=== PATIENT | female | born 1990 | race Caucasian/White ===

== ENCOUNTER 2021-10-31 17:37 | Observation (INO) | payer OTHER ==
[2021-10-31 18:51] LABS: ANION GAP 14.7 mmol/L (5-15); CHLORIDE,CL 107 mmol/L (98-107); SODIUM,NA 144 mmol/L (136-145)
--- NOTE | 2021-10-31 18:57 | CR ---
[id number] RAD/RAD Chest PA And Lateral EXAM: RAD Chest PA And Lateral INDICATION: SHORTNESS OF BREATH. COMPARISON: None. DISCUSSION/IMPRESSION: Cardiomediastinal silhouette is normal in size and contour. Lungs are clear. No pleural effusion or pneumothorax. Nicolas Solis MD 10/31/21 [id number] Thank you for allowing us to participate in the care of your patient.
[2021-10-31] MEDS ORDERED: Metoprolol Tartrate 25 MG Tab PO ONE (20:10)
--- NOTE | 2021-10-31 20:11 | EDM.PDOC ---
ED HPI GENERAL MEDICAL PROBLEM - General Chief Complaint: General Stated Complaint: CHEST PAIN WITH TACHYCARDIA Time Seen by Provider: 10/31/21 18:22 Source of Information: Reports: Patient History Limitations: Reports: No Limitations - History of Present Illness INITIAL COMMENTS - FREE TEXT/NARRATIVE: Patient presents with tachycardia and dyspnea with exertion. She also usually, but not always, has chest pressure with it. This happens very quickly with any exertion, even slight exertion such as walking across the room, sitting up in bed, or even talking. This happens every time she exerts and resolves quickly at rest. It started 5 days ago and has worsened somewhat each day. She wondered if it could be dehydration, although she drinks around 12 cups of water daily, so she increased to at least a gallon/day the last couple days; no improvement. 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 She has had 3 negative covid tests in the last 7-10 days. Her 3-year-old son tested positive for covid 1-2 weeks ago. 7 days ago she noticed some sharp, pleuritic-like chest pains for up to 5 minutes that happened a few times; deep breathing and positional changes didn't affect it though. 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 Denies: Cough Cardiovascular: Reports: Chest Pain. Denies: Lightheadedness, Syncope Endocrine: Denies: Fatigue GI/Abdominal: Denies: Abdominal Pain, Constipation, Diarrhea, Vomiting : Denies: Dysuria, Flank Pain Musculoskeletal: Denies: Neck Pain, Shoulder Pain, Arm Pain, Back Pain, Hand Pain Skin: Denies: Cyanosis, Jaundice, Mottled, Pallor, Diaphoresis Neurological: Denies: Confusion, Dizziness, Headache, Seizure, Syncope, Trouble Speaking, Difficulty Walking Psychiatric: Denies: Agitation, Anxiety ED EXAM, GENERAL - Physical Exam Exam: See Below Exam Limited By: No Limitations General Appearance: Alert, WD/WN, No Apparent Distress Eye Exam: Bilateral Eye: EOMI, Normal Inspection, PERRL Ears: Normal External Exam, Hearing Grossly Normal Nose: Normal Inspection, No Blood Throat/Mouth: Normal Inspection, Normal Lips, Normal Voice, No Airway Compromise Head: Atraumatic, Normocephalic Neck: Normal Inspection, Full Range of Motion Respiratory/Chest: No Respiratory Distress, Lungs Clear, Normal Breath Sounds, No Accessory Muscle Use, Chest Non-Tender Cardiovascular: Normal Peripheral Pulses, Regular Rate, Rhythm (at rest, but rate quickly rises with any activity), No Edema, No Gallop, No JVD, No Murmur Peripheral Pulses: 2+: Carotid (L), Carotid (R), Radial (L), Radial (R), Posterior Tibial (L), Posterior Tibial (R) GI/Abdominal: Normal Bowel Sounds, Soft, Non-Tender, No Organomegaly, No Distention Back Exam: Normal Inspection, Full Range of Motion. No: CVA Tenderness (L), CVA Tenderness (R) Extremities: Normal Inspection, Normal Range of Motion Neurological: Alert, Oriented, Normal Cognition, No Motor/Sensory Deficits Psychiatric: Normal Affect, Normal Mood, Anxious (somewhat) Skin Exam: Warm, Dry, Intact, Normal Color, No Rash Course - Vital Signs Last Recorded V/S: Last Vital Signs Temp 97.7 F 10/31/21 17:45 Pulse 106 H 10/31/21 19:00 Resp 18 10/31/21 19:00 BP 129/97 H 10/31/21 19:00 Pulse Ox 94 L 10/31/21 19:00 Orthostatic Blood Pressure [ 113/85 Standing] Orthostatic Blood Pressure [ 103/69 Supine] Orthostatic Blood Pressure [ 105/77 Sitting] - Orders/Labs/Meds Orders: Active Orders 24 hr Category Date Time Status Patient Status [ADT] Routine ADT 10/31/21 20:09 Ordered Orthostatic Vital Signs [RC] ASDIRECTED Care 10/31/21 20:09 Ordered EKG 12 Lead [EK] Stat Ther 10/31/21 17:56 Ordered Labs: Laboratory Tests 10/31/21 10/31/21 10/31/21 Range/Units 18:15 18:15 18:15 WBC (5.00-10.00) 10^3/uL RBC (3.80-5.50) 10^6/uL Hgb (12.0-16.0) g/dL Hct (37.0-47.0) % MCV (82.0-92.0) fL MCH (27.0-31.0) pg MCHC (32.0-36.0) g/dL RDW (11.5-14.5) % Plt Count (150-400) 10^3/uL MPV (7.4-10.4) fL Immature Gran % (Auto) (0.0-5.0) % Neut % (Auto) (50.0-70.0) % Lymph % (Auto) (20.0-40.0) % [place] % (Auto) (2.0-8.0) % Eos % (Auto) (1.0-3.0) % Baso % (Auto) (0.0-1.0) % Neut # (Auto) (2.50-7.00) 10^3/uL Lymph # (Auto) (1.00-4.00) 10^3/uL [place] # (Auto) (0.10-0.80) 10^3/uL Eos # (Auto) (0.10-0.30) 10^3/uL Baso # (Auto) (0.00-0.10) 10^3/uL Immature Gran # (Auto) (0.00-0.50) 10^3/uL D-Dimer, Quantitative < 100 (<400) ng/mL Sodium 144 (136-145) mmol/L Potassium 4.3 (3.5-5.1) mmol/L Chloride 107 (98-107) mmol/L Carbon Dioxide 26.6 (21.0-32.0) mmol/L Anion Gap 14.7 (5-15) mmol/L BUN 10 (7-18) mg/dL Creatinine 0.69 (0.51-1.17) mg/dL Est Cr Clr Drug Dosing 106.71 mL/min Estimated GFR (MDRD) > 60 mL/min Glucose 129 (70-140) mg/dL Calcium 8.7 (8.7-10.3) mg/dL Total Bilirubin 0.3 (0.2-1.0) mg/dL AST 15 (15-37) U/L ALT 19 (14-63) U/L Alkaline Phosphatase 101 (46-116) U/L Troponin I High Sens < 4.000 (0-51.000) pg/mL Total Protein 7.0 (6.4-8.2) g/dL Albumin 3.96 (3.40-5.00) g/dL TSH, Ultra Sensitive 2.082 (0.340-4.820) uIU/mL SARS CoV-2 RNA Rapid QUAN (NEGATIVE) 10/31/21 10/31/21 Range/Units 18:20 20:35 WBC 6.94 (5.00-10.00) 10^3/uL RBC 4.94 (3.80-5.50) 10^6/uL Hgb 13.5 (12.0-16.0) g/dL Hct 42.1 (37.0-47.0) % MCV 85.2 (82.0-92.0) fL MCH 27.3 (27.0-31.0) pg MCHC 32.1 (32.0-36.0) g/dL RDW 12.1 (11.5-14.5) % Plt Count 171 (150-400) 10^3/uL MPV 10.4 (7.4-10.4) fL Immature Gran % (Auto) 0.1 (0.0-5.0) % Neut % (Auto) 70.6 H (50.0-70.0) % Lymph % (Auto) 22.8 (20.0-40.0) % [place] % (Auto) 5.0 (2.0-8.0) % Eos % (Auto) 1.2 (1.0-3.0) % Baso % (Auto) 0.3 (0.0-1.0) % Neut # (Auto) 4.90 (2.50-7.00) 10^3/uL Lymph # (Auto) 1.58 (1.00-4.00) 10^3/uL [place] # (Auto) 0.35 (0.10-0.80) 10^3/uL Eos # (Auto) 0.08 L (0.10-0.30) 10^3/uL Baso # (Auto) 0.02 (0.00-0.10) 10^3/uL Immature Gran # (Auto) 0.01 (0.00-0.50) 10^3/uL D-Dimer, Quantitative (<400) ng/mL Sodium (136-145) mmol/L Potassium (3.5-5.1) mmol/L Chloride (98-107) mmol/L Carbon Dioxide (21.0-32.0) mmol/L Anion Gap (5-15) mmol/L BUN (7-18) mg/dL Creatinine (0.51-1.17) mg/dL Est Cr Clr Drug Dosing mL/min Estimated GFR (MDRD) mL/min Glucose (70-140) mg/dL Calcium (8.7-10.3) mg/dL Total Bilirubin (0.2-1.0) mg/dL AST (15-37) U/L ALT (14-63) U/L Alkaline Phosphatase (46-116) U/L Troponin I High Sens (0-51.000) pg/mL Total Protein (6.4-8.2) g/dL Albumin (3.40-5.00) g/dL TSH, Ultra Sensitive (0.340-4.820) uIU/mL SARS CoV-2 RNA Rapid QUAN Negative (NEGATIVE) Meds: Medications Discontinued Medications Generic Name Dose Route Start Last Admin Trade Name Freq PRN Reason Stop Dose Admin Metoprolol Tartrate 12.5 mg 10/31/21 20:10 Metoprolol Tartrate 25 Mg Tab PO 10/31/21 20:11 ONETIME ONE - Re-Assessments/Exams Free Text/Narrative Re-Assessment/Exam: 10/31/21 20:37 Patient appears completely comfortable at rest. HR of 85 is lowest I saw at rest. When talking rate went up to 105-115 range. When she got up for xray or bathroom rate went to 120-130 range. It returns to 85-95 range within seconds of stopping the activity. When the nurse did the EKG she tried to capture the higher HR; when patient sat up in bed she could get it up to 130 but as soon as she lay down to run the EKG it dropped. The highest recording they could get was 103. While I visited with her sitting up the HR was 105-115 range; we wondered if it would drop while sitting up, or if she would need be supine to drop the rate. When she stopped talking for 30-40 seconds her rate dropped to mid 80's. While talking she also feels dyspnea. CBC, CMP, D-dimer, troponin, CXR all negative. EKG shows sinus tachycardia with rate of 103 and no other dysrhythmias. I discussed case with Dr. Vences, client support coordinator at [facility], who feels she needs further workup including echocardiogram, however they don't have room to transfer her tonight. He advised observation here tonight and calling them at [phone] tomorrow for transfer to hospitalist with cardiology consult. He felt a low dose BB like metoprolol 12.5 mg would be okay tonight. I discussed case with Dr. Molina who accepted for admission here [facility]. I discussed findings and plan with patient who agrees. Patient stable. 10/31/21 20:54 Orthostatic blood pressure check actually showed a rise in both BP and HR with standing. Departure - Departure Time of Disposition: 20:12 Disposition: Refer to Observation Condition: Good Clinical Impression: Tachycardia with heart rate 121-140 beats per minute - Discharge Information Instructions: Postural Orthostatic Tachycardia Syndrome Referrals: Aisha Kelly [employer]UITING COORDINATOR [Primary Care Provider] - Forms: ED Department Discharge Sepsis Event Note (ED) - Evaluation Sepsis Screening Result: No Definite Risk - Focused Exam Vital Signs: Vital Signs Temp Pulse Resp BP Pulse Ox 10/31/21 19:00 106 H 18 129/97 H 94 L 10/31/21 18:45 113 H 21 H 131/97 H 99 10/31/21 18:30 99 13 123/79 100 10/31/21 18:15 96 17 120/79 95 10/31/21 18:00 97 16 122/87 92 L 10/31/21 17:45 97.7 F 97 17 118/86 98 - My Orders Last 24 Hours: My Active Orders 10/31/21 17:56 EKG 12 Lead [EK] Stat 10/31/21 20:09 Patient Status [ADT] Routine Orthostatic Vital Signs [RC] ASDIRECTED - Assessment/Plan Last 24 Hours: My Active Orders 10/31/21 17:56 EKG 12 Lead [EK] Stat 10/31/21 20:09 Patient Status [ADT] Routine Orthostatic Vital Signs [RC] ASDIRECTED
[2021-11-01] MEDS ORDERED: Lidocaine 2% 100 MG/5 ML Syringe IVPUSH PRN (02:00)
[2021-11-01] MEDS ORDERED: EPINEPHrine 1:10,000 1 MG/10 ML Syringe IVPUSH PRN (02:00)
[2021-11-01] MEDS ORDERED: Nitroglycerin 0.4 MG Tab.SL SL PRN (02:00)
[2021-11-01] MEDS ORDERED: Atropine 0.1 MG/ML 10 ML Syringe IVPUSH PRN (02:00)
[2021-11-01] MEDS ORDERED: Metoprolol Tartrate 25 MG Tab PO ONE (02:18)
[2021-11-01 08:10] LABS: CHLORIDE,CL 106 mmol/L (98-107); SODIUM,NA 143 mmol/L (136-145)
--- NOTE | 2021-11-01 09:15 | PCM.HP.2 ---
H&P History of Present Illness - General Date of Service: 11/01/21 Admit Problem/Dx: Admission Diagnosis/Problem Admission Diagnosis/Problem Tachycardia with heart rate 121-140 beats per minute - Related Data Allergies/Adverse Reactions: Allergies Allergy/AdvReac Type Severity Reaction Status Date / Time No Known Allergies Allergy Verified 10/31/21 17:50 Home Medications: Home Meds . 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: - Infectious Disease History Infectious Disease History: Reports: Chicken Pox - Past Surgical History Cardiovascular Surgical History: Reports: None Social & Family History - Family History Family Medical History: No Pertinent Family History - Tobacco Use Tobacco Use Status *Q: Never Tobacco User - Caffeine Use Caffeine Use: Reports: Soda - Recreational Drug Use Recreational Drug Use: No H&P Review of Systems - Review of Systems: Review Of Systems: See Below General: Reports: Fever (Earlier this week, now resolved), Chills (earlier this week, now resolved) HEENT: Reports: Sore Throat (earlier this week, improved) Pulmonary: Reports: Shortness of Breath (with minimal activity, talking), Pleuritic Chest Pain, Cough, Sputum. Denies: Wheezing Cardiovascular: Reports: Chest Pain, Palpitations, Dyspnea on Exertion. Denies: Edema, Lightheadedness, Syncope Gastrointestinal: Reports: No Symptoms Genitourinary: Reports: No Symptoms Musculoskeletal: Reports: No Symptoms Skin: Reports: No Symptoms Psychiatric: Reports: Anxiety Neurological: Reports: No Symptoms Exam - Exam Exam: See Below - Vital Signs Vital Signs: Last Vital Signs Temp 97.8 F 11/01/21 06:37 Pulse 76 11/01/21 06:37 Resp 18 11/01/21 06:37 BP 101/59 L 11/01/21 06:37 Pulse Ox 97 11/01/21 06:37 Orthostatic Blood Pressure [ 113/85 Standing] Orthostatic Blood Pressure [ 103/69 Supine] Orthostatic Blood Pressure [ 105/77 Sitting] Weight: 127 lb - Exam Quality Assessment: No: Supplemental Oxygen General: Alert, Oriented, Cooperative. No: Mild Distress HEENT: Conjunctiva Clear, EACs Clear, Mucosa Moist & Plum Neck: Supple, Trachea Midline, Other (mild lymphadenopathy; chronic enlarged node to L neck) Lungs: Clear to Auscultation, Normal Respiratory Effort. No: Crackles, Rhonchi, Wheezing Cardiovascular: Regular Rate, Regular Rhythm. No: Systolic Murmur GI/Abdominal Exam: Normal Bowel Sounds, Soft, Non-Tender, No Distention Back Exam: Normal Inspection, Full Range of Motion Extremities: Normal Inspection, Normal Range of Motion, Non-Tender, No Pedal Edema, Normal Capillary Refill Skin: Warm, Dry, Intact Neuro Extensive - Mental Status: Alert, Oriented x3, Normal Mood/Affect Psychiatric: Alert, Normal Affect, Normal Mood - Patient Data Lab Results Last 24 hrs: Laboratory Results - last 24 hr 10/31/21 10/31/21 10/31/21 Range/Units 18:15 18:15 18:15 WBC (5.00-10.00) 10^3/uL RBC (3.80-5.50) 10^6/uL Hgb (12.0-16.0) g/dL Hct (37.0-47.0) % MCV (82.0-92.0) fL MCH (27.0-31.0) pg MCHC (32.0-36.0) g/dL RDW (11.5-14.5) % Plt Count (150-400) 10^3/uL MPV (7.4-10.4) fL Immature Gran % (Auto) (0.0-5.0) % Neut % (Auto) (50.0-70.0) % Lymph % (Auto) (20.0-40.0) % [place] % (Auto) (2.0-8.0) % Eos % (Auto) (1.0-3.0) % Baso % (Auto) (0.0-1.0) % Neut # (Auto) (2.50-7.00) 10^3/uL Lymph # (Auto) (1.00-4.00) 10^3/uL [place] # (Auto) (0.10-0.80) 10^3/uL Eos # (Auto) (0.10-0.30) 10^3/uL Baso # (Auto) (0.00-0.10) 10^3/uL Immature Gran # (Auto) (0.00-0.50) 10^3/uL D-Dimer, Quantitative < 100 (<400) ng/mL Sodium 144 (136-145) mmol/L Potassium 4.3 (3.5-5.1) mmol/L Chloride 107 (98-107) mmol/L Carbon Dioxide 26.6 (21.0-32.0) mmol/L Anion Gap 14.7 (5-15) mmol/L BUN 10 (7-18) mg/dL Creatinine 0.69 (0.51-1.17) mg/dL Est Cr Clr Drug Dosing 106.71 mL/min Estimated GFR (MDRD) > 60 mL/min Glucose 129 (70-140) mg/dL Calcium 8.7 (8.7-10.3) mg/dL Magnesium (1.8-2.4) mg/dL Total Bilirubin 0.3 (0.2-1.0) mg/dL AST 15 (15-37) U/L ALT 19 (14-63) U/L Alkaline Phosphatase 101 (46-116) U/L Troponin I High Sens < 4.000 (0-51.000) pg/mL Total Protein 7.0 (6.4-8.2) g/dL Albumin 3.96 (3.40-5.00) g/dL TSH, Ultra Sensitive 2.082 (0.340-4.820) uIU/mL SARS CoV-2 RNA Rapid QUAN (NEGATIVE) 10/31/21 10/31/21 11/01/21 Range/Units 18:20 20:35 02:25 WBC 6.94 (5.00-10.00) 10^3/uL RBC 4.94 (3.80-5.50) 10^6/uL Hgb 13.5 (12.0-16.0) g/dL Hct 42.1 (37.0-47.0) % MCV 85.2 (82.0-92.0) fL MCH 27.3 (27.0-31.0) pg MCHC 32.1 (32.0-36.0) g/dL RDW 12.1 (11.5-14.5) % Plt Count 171 (150-400) 10^3/uL MPV 10.4 (7.4-10.4) fL Immature Gran % (Auto) 0.1 (0.0-5.0) % Neut % (Auto) 70.6 H (50.0-70.0) % Lymph % (Auto) 22.8 (20.0-40.0) % [place] % (Auto) 5.0 (2.0-8.0) % Eos % (Auto) 1.2 (1.0-3.0) % Baso % (Auto) 0.3 (0.0-1.0) % Neut # (Auto) 4.90 (2.50-7.00) 10^3/uL Lymph # (Auto) 1.58 (1.00-4.00) 10^3/uL Spencer # (Auto) 0.35 (0.10-0.80) 10^3/uL Eos # (Auto) 0.08 L (0.10-0.30) 10^3/uL Baso # (Auto) 0.02 (0.00-0.10) 10^3/uL Immature Gran # (Auto) 0.01 (0.00-0.50) 10^3/uL D-Dimer, Quantitative (<400) ng/mL Sodium (136-145) mmol/L Potassium (3.5-5.1) mmol/L Chloride (98-107) mmol/L Carbon Dioxide (21.0-32.0) mmol/L Anion Gap (5-15) mmol/L BUN (7-18) mg/dL Creatinine (0.51-1.17) mg/dL Est Cr Clr Drug Dosing mL/min Estimated GFR (MDRD) mL/min Glucose (70-140) mg/dL Calcium (8.7-10.3) mg/dL Magnesium (1.8-2.4) mg/dL Total Bilirubin (0.2-1.0) mg/dL AST (15-37) U/L ALT (14-63) U/L Alkaline Phosphatase (46-116) U/L Troponin I High Sens 4.600 (0-51.000) pg/mL Total Protein (6.4-8.2) g/dL Albumin (3.40-5.00) g/dL TSH, Ultra Sensitive (0.340-4.820) uIU/mL SARS CoV-2 RNA Rapid QUAN Negative (NEGATIVE) 11/01/21 11/01/21 Range/Units 07:10 07:10 WBC 11.55 H (5.00-10.00) 10^3/uL RBC 5.04 (3.80-5.50) 10^6/uL Hgb 13.7 (12.0-16.0) g/dL Hct 43.3 (37.0-47.0) % MCV 85.9 (82.0-92.0) fL MCH 27.2 (27.0-31.0) pg MCHC 31.6 L (32.0-36.0) g/dL RDW 12.1 (11.5-14.5) % Plt Count 226 (150-400) 10^3/uL MPV 11.1 H (7.4-10.4) fL Immature Gran % (Auto) 0.1 (0.0-5.0) % Neut % (Auto) 73.8 H (50.0-70.0) % Lymph % (Auto) 21.6 (20.0-40.0) % Spencer % (Auto) 3.8 (2.0-8.0) % Eos % (Auto) 0.6 L (1.0-3.0) % Baso % (Auto) 0.1 (0.0-1.0) % Neut # (Auto) 8.53 H (2.50-7.00) 10^3/uL Lymph # (Auto) 2.49 (1.00-4.00) 10^3/uL Spencer # (Auto) 0.44 (0.10-0.80) 10^3/uL Eos # (Auto) 0.07 L (0.10-0.30) 10^3/uL Baso # (Auto) 0.01 (0.00-0.10) 10^3/uL Immature Gran # (Auto) 0.01 (0.00-0.50) 10^3/uL D-Dimer, Quantitative (<400) ng/mL Sodium 143 (136-145) mmol/L Potassium 3.6 (3.5-5.1) mmol/L Chloride 106 (98-107) mmol/L Carbon Dioxide 27.6 (21.0-32.0) mmol/L Anion Gap 13.0 (5-15) mmol/L BUN 11 (7-18) mg/dL Creatinine 0.67 (0.51-1.17) mg/dL Est Cr Clr Drug Dosing 111.65 mL/min Estimated GFR (MDRD) > 60 mL/min Glucose 109 (70-140) mg/dL Calcium 8.4 L (8.7-10.3) mg/dL Magnesium 2.2 (1.8-2.4) mg/dL Total Bilirubin 0.4 (0.2-1.0) mg/dL AST 14 L (15-37) U/L ALT 19 (14-63) U/L Alkaline Phosphatase 106 (46-116) U/L Troponin I High Sens (0-51.000) pg/mL Total Protein 7.0 (6.4-8.2) g/dL Albumin 3.86 (3.40-5.00) g/dL TSH, Ultra Sensitive (0.340-4.820) uIU/mL SARS CoV-2 RNA Rapid QUAN (NEGATIVE) Result Diagrams: 11/01/21 07:10 11/01/21 07:10 Sepsis Event Note - Evaluation Sepsis Screening Result: No Definite Risk - Focused Exam Vital Signs: Vital Signs Temp Pulse Pulse Resp BP BP Pulse Ox 11/01/21 06:37 97.8 F 76 18 101/59 L 97 11/01/21 03:00 97.0 F 76 18 114/72 96 11/01/21 02:32 91 114/73 10/31/21 23:00 97.2 F 79 18 111/64 98 Problem List Initiated/Reviewed/Updated: Yes Orders Last 24hrs: Active Orders 24 hr Category Date Time Status Patient Status [ADT] Routine ADT 10/31/21 20:09 Active Activity as Tolerated [RC] .Routine Care 10/31/21 21:18 Active Communication Order [RC] ASDIRECTED Care 10/31/21 21:23 Active Orthostatic Vital Signs [RC] ASDIRECTED Care 10/31/21 20:09 Active Telemetry Monitoring [Cardiac Monitoring] [RC] 03,07,11 Care 10/31/21 21:20 Active ,15,19,23 Regular Diet [DIET] Diet 11/01/21 Breakfast Active Atropine [Atropine 0.1 MG/ML] Med 11/01/21 02:00 Active 0.5 - 1 mg IVPUSH ASDIRECTED PRN EPINEPHrine [EPINEPHrine 1:10,000] Med 11/01/21 02:00 Active 1 mg IVPUSH ASDIRECTED PRN Lidocaine 2% [Xylocaine 2%] Med 11/01/21 02:00 Active See Dose Instructions IVPUSH ASDIRECTED PRN Nitroglycerin [Nitrostat] Med 11/01/21 02:00 Active 0.4 mg SL ASDIRECTED PRN Code Status [Resuscitation Status] Routine Resus Stat 10/31/21 21:21 Ordered EKG 12 Lead [EK] Stat Ther 10/31/21 17:56 Ordered EKG 12 Lead [EK] Stat Ther 11/01/21 02:23 Ordered Medication Orders Atropine Sulfate (Atropine 0.1 Mg/Ml 10 Ml Syringe) 0.5 - 1 mg IVPUSH ASDIRECTED PRN PRN Reason: Heart. Epinephrine HCl (Epinephrine 1:10,000 1 Mg/10 Ml Syringe) 1 mg IVPUSH ASDIRECTED PRN PRN Reason: Heart. Lidocaine HCl (Lidocaine 2% 100 Mg/5 Ml Syringe) 0 mg IVPUSH ASDIRECTED PRN PRN Reason: Heart. Nitroglycerin (Nitroglycerin 0.4 Mg Tab.Sl) 0.4 mg SL ASDIRECTED PRN PRN Reason: Heart. Assessment/Plan Comment:: HPI summary: ED course: Hospital course: Hospitalization problems and plan: # Chronic, stable conditions: # Hospitalization details: # FEN: # PPX: # Code status: # Emergency contact: # Disposition:
--- NOTE | 2021-11-01 10:19 | PCM.DCSUM1 ---
Discharge Summary - Discharge Data Discharge Date: 11/01/21 Discharge Disposition: DC/Tfer to Acute Hospital 02 Condition: Good - Referral to Home Health Primary Care Physician: Aisha Kelly NP - Patient Instructions Diet: Usual Diet as Tolerated - Discharge Plan *PRESCRIPTION DRUG MONITORING PROGRAM REVIEWED*: Not Applicable *COPY OF PRESCRIPTION DRUG MONITORING REPORT IN PATIENT TONO: Not Applicable Home Medications: Home Meds . [No Known Home Meds] 10/31/21 [History] Oxygen Therapy Mode: Room Air Referrals: Aisha Kelly NP [Primary Care Provider] - - Discharge Summary/Plan Comment DC Time >30 min.: Yes Total # of Minutes for Discharge Time: 35 - Patient Data Vitals - Most Recent: Last Vital Signs Temp 97.8 F 11/01/21 06:37 Pulse 76 11/01/21 06:37 Resp 18 11/01/21 06:37 BP 101/59 L 11/01/21 06:37 Pulse Ox 97 11/01/21 06:37 Orthostatic Blood Pressure [ 113/85 Standing] Orthostatic Blood Pressure [ 103/69 Supine] Orthostatic Blood Pressure [ 105/77 Sitting] Weight - Most Recent: 127 lb I&O - Last 24 hours: Intake & Output 10/31/21 11/01/21 11/01/21 22:59 06:59 14:59 Intake Total 700 700 Balance 700 700 Lab Results - Last 24 hrs: Laboratory Results - last 24 hr 10/31/21 10/31/21 10/31/21 Range/Units 18:15 18:15 18:15 WBC (5.00-10.00) 10^3/uL RBC (3.80-5.50) 10^6/uL Hgb (12.0-16.0) g/dL Hct (37.0-47.0) % MCV (82.0-92.0) fL MCH (27.0-31.0) pg MCHC (32.0-36.0) g/dL RDW (11.5-14.5) % Plt Count (150-400) 10^3/uL MPV (7.4-10.4) fL Immature Gran % (Auto) (0.0-5.0) % Neut % (Auto) (50.0-70.0) % Lymph % (Auto) (20.0-40.0) % [place] % (Auto) (2.0-8.0) % Eos % (Auto) (1.0-3.0) % Baso % (Auto) (0.0-1.0) % Neut # (Auto) (2.50-7.00) 10^3/uL Lymph # (Auto) (1.00-4.00) 10^3/uL [place] # (Auto) (0.10-0.80) 10^3/uL Eos # (Auto) (0.10-0.30) 10^3/uL Baso # (Auto) (0.00-0.10) 10^3/uL Immature Gran # (Auto) (0.00-0.50) 10^3/uL D-Dimer, Quantitative < 100 (<400) ng/mL Sodium 144 (136-145) mmol/L Potassium 4.3 (3.5-5.1) mmol/L Chloride 107 (98-107) mmol/L Carbon Dioxide 26.6 (21.0-32.0) mmol/L Anion Gap 14.7 (5-15) mmol/L BUN 10 (7-18) mg/dL Creatinine 0.69 (0.51-1.17) mg/dL Est Cr Clr Drug Dosing 106.71 mL/min Estimated GFR (MDRD) > 60 mL/min Glucose 129 (70-140) mg/dL Calcium 8.7 (8.7-10.3) mg/dL Magnesium (1.8-2.4) mg/dL Total Bilirubin 0.3 (0.2-1.0) mg/dL AST 15 (15-37) U/L ALT 19 (14-63) U/L Alkaline Phosphatase 101 (46-116) U/L Troponin I High Sens < 4.000 (0-51.000) pg/mL Total Protein 7.0 (6.4-8.2) g/dL Albumin 3.96 (3.40-5.00) g/dL TSH, Ultra Sensitive 2.082 (0.340-4.820) uIU/mL SARS CoV-2 RNA Rapid QUAN (NEGATIVE) 10/31/21 10/31/21 11/01/21 Range/Units 18:20 20:35 02:25 WBC 6.94 (5.00-10.00) 10^3/uL RBC 4.94 (3.80-5.50) 10^6/uL Hgb 13.5 (12.0-16.0) g/dL Hct 42.1 (37.0-47.0) % MCV 85.2 (82.0-92.0) fL MCH 27.3 (27.0-31.0) pg MCHC 32.1 (32.0-36.0) g/dL RDW 12.1 (11.5-14.5) % Plt Count 171 (150-400) 10^3/uL MPV 10.4 (7.4-10.4) fL Immature Gran % (Auto) 0.1 (0.0-5.0) % Neut % (Auto) 70.6 H (50.0-70.0) % Lymph % (Auto) 22.8 (20.0-40.0) % [place] % (Auto) 5.0 (2.0-8.0) % Eos % (Auto) 1.2 (1.0-3.0) % Baso % (Auto) 0.3 (0.0-1.0) % Neut # (Auto) 4.90 (2.50-7.00) 10^3/uL Lymph # (Auto) 1.58 (1.00-4.00) 10^3/uL [place] # (Auto) 0.35 (0.10-0.80) 10^3/uL Eos # (Auto) 0.08 L (0.10-0.30) 10^3/uL Baso # (Auto) 0.02 (0.00-0.10) 10^3/uL Immature Gran # (Auto) 0.01 (0.00-0.50) 10^3/uL D-Dimer, Quantitative (<400) ng/mL Sodium (136-145) mmol/L Potassium (3.5-5.1) mmol/L Chloride (98-107) mmol/L Carbon Dioxide (21.0-32.0) mmol/L Anion Gap (5-15) mmol/L BUN (7-18) mg/dL Creatinine (0.51-1.17) mg/dL Est Cr Clr Drug Dosing mL/min Estimated GFR (MDRD) mL/min Glucose (70-140) mg/dL Calcium (8.7-10.3) mg/dL Magnesium (1.8-2.4) mg/dL Total Bilirubin (0.2-1.0) mg/dL AST (15-37) U/L ALT (14-63) U/L Alkaline Phosphatase (46-116) U/L Troponin I High Sens 4.600 (0-51.000) pg/mL Total Protein (6.4-8.2) g/dL Albumin (3.40-5.00) g/dL TSH, Ultra Sensitive (0.340-4.820) uIU/mL SARS CoV-2 RNA Rapid QUAN Negative (NEGATIVE) 11/01/21 11/01/21 Range/Units 07:10 07:10 WBC 11.55 H (5.00-10.00) 10^3/uL RBC 5.04 (3.80-5.50) 10^6/uL Hgb 13.7 (12.0-16.0) g/dL Hct 43.3 (37.0-47.0) % MCV 85.9 (82.0-92.0) fL MCH 27.2 (27.0-31.0) pg MCHC 31.6 L (32.0-36.0) g/dL RDW 12.1 (11.5-14.5) % Plt Count 226 (150-400) 10^3/uL MPV 11.1 H (7.4-10.4) fL Immature Gran % (Auto) 0.1 (0.0-5.0) % Neut % (Auto) 73.8 H (50.0-70.0) % Lymph % (Auto) 21.6 (20.0-40.0) % [place] % (Auto) 3.8 (2.0-8.0) % Eos % (Auto) 0.6 L (1.0-3.0) % Baso % (Auto) 0.1 (0.0-1.0) % Neut # (Auto) 8.53 H (2.50-7.00) 10^3/uL Lymph # (Auto) 2.49 (1.00-4.00) 10^3/uL [place] # (Auto) 0.44 (0.10-0.80) 10^3/uL Eos # (Auto) 0.07 L (0.10-0.30) 10^3/uL Baso # (Auto) 0.01 (0.00-0.10) 10^3/uL Immature Gran # (Auto) 0.01 (0.00-0.50) 10^3/uL D-Dimer, Quantitative (<400) ng/mL Sodium 143 (136-145) mmol/L Potassium 3.6 (3.5-5.1) mmol/L Chloride 106 (98-107) mmol/L Carbon Dioxide 27.6 (21.0-32.0) mmol/L Anion Gap 13.0 (5-15) mmol/L BUN 11 (7-18) mg/dL Creatinine 0.67 (0.51-1.17) mg/dL Est Cr Clr Drug Dosing 111.65 mL/min Estimated GFR (MDRD) > 60 mL/min Glucose 109 (70-140) mg/dL Calcium 8.4 L (8.7-10.3) mg/dL Magnesium 2.2 (1.8-2.4) mg/dL Total Bilirubin 0.4 (0.2-1.0) mg/dL AST 14 L (15-37) U/L ALT 19 (14-63) U/L Alkaline Phosphatase 106 (46-116) U/L Troponin I High Sens (0-51.000) pg/mL Total Protein 7.0 (6.4-8.2) g/dL Albumin 3.86 (3.40-5.00) g/dL TSH, Ultra Sensitive (0.340-4.820) uIU/mL SARS CoV-2 RNA Rapid QUAN (NEGATIVE) Med Orders - Current: Current Medications Atropine Sulfate (Atropine 0.1 Mg/Ml 10 Ml Syringe) 0.5 - 1 mg IVPUSH ASDIRECTED PRN PRN Reason: Heart. Epinephrine HCl (Epinephrine 1:10,000 1 Mg/10 Ml Syringe) 1 mg IVPUSH ASDIRECTED PRN PRN Reason: Heart. Lidocaine HCl (Lidocaine 2% 100 Mg/5 Ml Syringe) 0 mg IVPUSH ASDIRECTED PRN PRN Reason: Heart. Nitroglycerin (Nitroglycerin 0.4 Mg Tab.Sl) 0.4 mg SL ASDIRECTED PRN PRN Reason: Heart. Discontinued Medications Metoprolol Tartrate (Metoprolol Tartrate 25 Mg Tab) 12.5 mg PO ONETIME ONE Stop: 10/31/21 20:11 Last Admin: 10/31/21 21:25 Dose: Not Given Documented by: Metoprolol Tartrate (Metoprolol Tartrate 25 Mg Tab) 12.5 mg PO ONETIME ONE Stop: 11/01/21 02:19 Last Admin: 11/01/21 02:32 Dose: 12.5 mg Documented by:
== END 2021-11-01 17:19 ==
LOC: KA.ED 17:37 → KA.MS 20:09
PROVIDERS: ADMIT Student in an Organized Health Care Education/Training Program; ATTEND Student in an Organized Health Care Education/Training Program
DX: R00.0 Tachycardia, unspecified (principal); R06.00 Dyspnea, unspecified; Z20.822 Contact with and (suspected) exposure to COVID-19
CPT/HCPCS: 36415; 71046; 80053; 83735; 84443; 84484; 85025; 85379; 87804; 87807; 93005; 99285-25; A9270-GY; G0378; U0002